=== PATIENT | female | born 1965 | race Caucasian/White ===

== ENCOUNTER 2017-05-24 07:18 | Emergency (ER) | payer BC, OTHER ==
[~2017-05-24] VITALS: Ht 182.9 cm; Wt 80.1 kg
[~2017-05-24 07:18] MED LIST: IMT100 PO; MELA1TAB5 PO
[2017-05-24 07:24] VITALS: TEMP 36.6; Ht 182.9 cm; Wt 80.1 kg
[2017-05-24] MEDS ORDERED: SODIUM CHLORIDE 0.9% 1000ML 1,000 ML IV STA ×2 (07:37→09:02)
--- NOTE | 2017-05-24 07:47 | EMERGENCY ROOM VISIT NOTE ---
History First contact with patient: 07:28 Chief Complaint: VOMITING Stated Complaint: VOMITING X 3DAYS,VARGAS,NAUSEA History of Present Illness The patient is a 51 year old female who presents to the Emergency Room via private vehicle accompanied by with complaints of "vomiting 3 days, headache, nausea". The patient states that 3 days ago she was at work, developed a headache, nausea and vomiting. She states that she typically has migraines, and uses Imitrex of which most the time experiences relief. She states that she took her first dose of Imitrex 3 days ago, and the headache seemed amplified. She states that she then took her second dose the next day and the headache began to subside. She states that unfortunately the nausea and the vomiting persisted. At this time she has been unable to tolerate any fluids or food by mouth for the past 3 days. She states she feels very weak. Additionally she notes that yesterday while laying down she saw bright flashes of light in both eyes every time she opens them. This has not dissipated. She denies any abdominal pain, or unilateral weakness. Review of Systems A complete 10-point Review of Systems was discussed with the patient, with pertinent positives and negatives listed in the History of Present Illness. All remaining Review of Systems questions can be considered negative unless otherwise specified. Past Medical/Surgical History Migraines Family History No pertinent Social History Smoking Status: Never Smoker Pt. lives and is employed locally. Current/Historical Medications Scheduled Prochlorperazine Maleate (Compazine), 1 TAB PO Q6 Scheduled PRN Sumatriptan Succinate (Imitrex), 100 MG PO UD PRN for Migraine Physical Exam Vital Signs Date Time Temp Pulse Resp B/P (MAP) Pulse Ox O2 Delivery O2 Flow Rate FiO2 05/24/17 11:54 74 20 118/74 99 05/24/17 10:55 74 20 118/83 99 Room Air 05/24/17 08:54 62 20 125/81 100 Room Air 05/24/17 08:19 78 05/24/17 07:54 97 05/24/17 07:24 36.6 81 20 121/76 97 Room Air Physical Exam VITAL SIGNS - Vital signs and nursing notes were reviewed. Stable. GENERAL - 51-year-old female appearing her stated age who is in no acute distress. Communicates well with provider and answers questions appropriately. SKIN - Without rashes. No petechial rashes. HEAD - NC/AT. Unremarkable. No loyd signs or raccoons eyes. EYES - PERRL with EOMI bilaterally. Sclera anicteric. No hyphema. EARS - No deformities of external structures noted on gross examination bilaterally. No pain elicited with palpation of the tragus bilaterally. External auditory canals without discharge or otorrhea. Tympanic membranes pearly castaneda without retraction or bulging. No fluid or purulent material visualized behind the TM. Handle of malleus, umbo, cone of light, pars tensa/ flaccid all easily visualized. No hemotympanum. NOSE - Midline and without cyanosis. No epistaxis or purulent drainage noted. Septum midline without deviation or septal hematoma noted. MOUTH/OROPHARYNX - Without perioral cyanosis. Buccal mucosa pink and moist and without leukoplakia. Tongue midline with equal elevation of palate bilaterally. No tonsillar hypertrophy, erythema, or exudates noted. Fair dentition noted. NECK - Neck with FROM. Supple to palpation. No lymphadenopathy noted. No nuchal rigidity. No evidence of meningitis. LUNGS - Chest wall symmetric without accessory muscle use, intercostals retractions, or central cyanosis. Normal vesicular breath sounds CTA B/L. No wheezes, rales, or rhonchi appreciated. CARDIAC - RRR with S1/S2. No murmur, rubs, or gallops appreciated. ABDOMEN - Abdominal contour normal without pulsations or visible masses. BS normoactive all four quadrants. No tenderness, palpable masses, hepatosplenomegaly, or ascites noted. EXTREMITIES - No clubbing or peripheral cyanosis. No pretibial edema present. She is neurovascularly intact in the extremities. +5/5 strength noted in UE/LE bilaterally. NEUROLOGIC - Cranial nerves II through XII grossly intact. Sensory intact to light touch throughout. PSYCH - A&O, and cooperates fully with examiner. Pt is very pleasant and interacts well with examiner. Medical Decision & Procedures ER Provider Diagnostic Interpretation: HEAD WITHOUT CONTRAST (CT) CT DOSE: 729.78 mGycm HISTORY: Headache, nausea, emesis x 3 days TECHNIQUE: Multiaxial CT images of the head were performed without the use of intravenous contrast. A dose lowering technique was utilized adhering to the principles of ALARA. Comparison: None. Findings: The paranasal sinuses and mastoid air cells are clear. The calvarium and skull base are intact. The ventricles and sulci are within normal limits. There is no mass, hematoma, midline shift, or acute infarct. Impression: No acute intracranial abnormality. The above report was generated using voice recognition software. It may contain grammatical, syntax or spelling errors. Electronically signed by: Lavon Gaming M.D. 05/24/2017 8:36 AM Dictated Date/Time: 05/24/2017 8:35 AM Laboratory Results 05/24/17 07:45 Red Blood Count 4.32, Mean Corpuscular Volume 93.3, Mean Corpuscular Hemoglobin 32.9, Mean Corpuscular Hemoglobin Concent 35.2, Mean Platelet Volume 9.4, Neutrophils (%) (Auto) 74.1, Lymphocytes (%) (Auto) 18.9, Monocytes (%) (Auto) 6.6, Eosinophils (%) (Auto) 0.2, Basophils (%) (Auto) 0.1, Neutrophils # (Auto) 7.63, Lymphocytes # (Auto) 1.95, Monocytes # (Auto) 0.68, Eosinophils # (Auto) 0.02, Basophils # (Auto) 0.01 05/24/17 07:45 Test 05/24/17 07:45 05/24/17 09:15 White Blood Count 10.30 K/uL (4.8-10.8) Red Blood Count 4.32 M/uL (4.2-5.4) Hemoglobin 14.2 g/dL (12.0-16.0) Hematocrit 40.3 % (37-47) Mean Corpuscular Volume 93.3 fL (80-100) Mean Corpuscular Hemoglobin 32.9 pg (25-34) Mean Corpuscular Hemoglobin Concent 35.2 g/dl (32-36) Platelet Count 365 K/uL (130-400) Mean Platelet Volume 9.4 fL (7.4-10.4) Neutrophils (%) (Auto) 74.1 % Lymphocytes (%) (Auto) 18.9 % Monocytes (%) (Auto) 6.6 % Eosinophils (%) (Auto) 0.2 % Basophils (%) (Auto) 0.1 % Neutrophils # (Auto) 7.63 K/uL (1.4-6.5) Lymphocytes # (Auto) 1.95 K/uL (1.2-3.4) Monocytes # (Auto) 0.68 K/uL (0.11-0.59) Eosinophils # (Auto) 0.02 K/uL (0-0.5) Basophils # (Auto) 0.01 K/uL (0-0.2) RDW Standard Deviation 41.6 fL (36.4-46.3) RDW Coefficient of Variation 12.2 % (11.5-14.5) Immature Granulocyte % (Auto) 0.1 % Immature Granulocyte # (Auto) 0.01 K/uL (0.00-0.02) Erythrocyte Sedimentation Rate 11 mm/hr (0-21) Prothrombin Time 10.8 SECONDS (9.0-12.0) Prothromb Time International Ratio 1.0 (0.9-1.1) Activated Partial Thromboplast Time 26.6 SECONDS (21.0-31.0) Partial Thromboplastin Ratio 1.0 Anion Gap 7.0 mmol/L (3-11) Est Creatinine Clear Calc Drug Dose 98.6 ml/min Estimated GFR () 102.9 Estimated GFR (Non- 88.8 BUN/Creatinine Ratio 17.5 (10-20) Calcium Level 9.0 mg/dl (8.5-10.1) Phosphorus Level 1.6 mg/dl (2.5-4.9) Magnesium Level 2.1 mg/dl (1.8-2.4) Total Bilirubin 0.7 mg/dl (0.2-1) Aspartate Amino Transf (AST/SGOT) 11 U/L (15-37) Alanine Aminotransferase (ALT/SGPT) 16 U/L (12-78) Alkaline Phosphatase 73 U/L (45-117) Troponin I < 0.015 ng/ml (0-0.045) C-Reactive Protein < 0.29 mg/dl (0-0.29) Total Protein 7.1 gm/dl (6.4-8.2) Albumin 3.8 gm/dl (3.4-5.0) Globulin 3.3 gm/dl (2.5-4.0) Albumin/Globulin Ratio 1.2 (0.9-2) Thyroid Stimulating Hormone (TSH) 1.520 uIu/ml (0.300-4.500) Lyme Disease IgG Antibody NEG (NEG) Lyme Disease IgM Antibody NEG (NEG) Urine Color YELLOW Urine Appearance CLEAR (CLEAR) Urine pH 8.0 (4.5-7.5) Urine Specific [place] 1.009 (1.000-1.030) Urine Protein NEG (NEG) Urine Glucose (UA) NEG (NEG) Urine Ketones 1+ (NEG) Urine Occult Blood NEG (NEG) Urine Nitrite NEG (NEG) Urine Bilirubin NEG (NEG) Urine Urobilinogen NEG (NEG) Urine Leukocyte Esterase TRACE (NEG) Urine WBC (Auto) 0 /hpf (0-5) Urine RBC (Auto) 0-4 /hpf (0-4) Urine Hyaline Casts (Auto) 0 /lpf (0-5) Urine Epithelial Cells (Auto) 10-20 /lpf (0-5) Urine Bacteria (Auto) NEG (NEG) Medications Administered Medications (Trade) Dose Ordered Sig/Fnay Route Start Time Stop Time Status Last Admin Dose Admin Sodium Chloride 1,000 ml @ 999 mls/hr Q1H1M STAT IV 05/24/17 07:37 05/24/17 08:37 DC 05/24/17 07:57 999 MLS/HR Ketorolac Tromethamine (Toradol Inj) 30 mg NOW STAT IV 05/24/17 09:01 05/24/17 09:02 DC 05/24/17 09:23 30 MG Diphenhydramine HCl (Benadryl Inj) 25 mg NOW STAT IV 05/24/17 09:01 05/24/17 09:02 DC 05/24/17 09:24 25 MG Prochlorperazine Edisylate (Compazine Inj) 10 mg NOW STAT IV 05/24/17 09:01 05/24/17 09:02 DC 05/24/17 09:26 10 MG Sodium Chloride 1,000 ml @ 200 mls/hr Q5H STAT IV 05/24/17 09:02 05/24/17 12:10 DC 05/24/17 09:33 200 MLS/HR Potassium/ Phosphorus/Sodium (Phospha 250 Neutral 155-852-130 Mg) 2 tab QID STAT PO 05/24/17 11:28 05/24/17 11:30 DC 05/24/17 11:47 2 TAB Medical Decision Patient was seen and evaluated as above. She presents to us today with headache , nausea and emesis 3 days. No evidence of meningitis on exam. Offered lumbar puncture, and specifically declined after discussing benefits versus risks. I do not believe that lumbar punctures beneficial at this time. I think she is likely experiencing exacerbation of her underlying chronic migraines, with now what appears to be persistent vomiting. IV access was initiated, and she was given 1 L fluid wide open, followed by no liter slightly slower. She was reevaluated and feeling better. She initially declined any pain medication written nausea medication, and then after discussing benefits versus risk was given Toradol, Benadryl and comes in. She was reevaluated and rated her headache a 1/10. Her phosphorus was low, therefore was given oral phosphorous and is to eat a phosphorus which diet. She is to follow-up with her family doctor for recheck of this. No evidence of kidney or liver failure. No concerning leukocytosis or anemia. She was educated upon management, and was felt stable for outpatient management. She was also personally evaluated by the attending physician. She was educated upon worrisome symptoms which to return, had questions answered prior to discharge, and was discharged home in good condition. She'll be discharged home with a prescription of Compazine. In the evaluation and treatment of this patient, the following differential diagnoses were considered: Migraine Headache, Intracranial Hemorrhage, Subdural Hematoma, Subarachnoid Hemorrhage, Cerebral Aneurysm, Temporal/Giant Cell Arteritis, Tension Headache, Meningitis, Encephalitis, or Hydrocephalus. Impression Primary Impression: Vomiting Additional Impressions: Headache low phosphorus Departure Information Dispostion Home / Self-Care Condition GOOD Prescriptions Prochlorperazine Maleate (COMPAZINE) 10 Mg Tab 1 TAB PO Q6 for 7 Days, #30 TAB 3 Refills Prov: Daniel Maldonado PA-C 05/24/17 Referrals Hernandez Louise M.D. (PCP) Patient Instructions My [facility] Additional Instructions You have been treated in the Emergency Department for a Headache. You have received pain medicine in the emergency department which impairs your ability to operate a vehicle. It is illegal for you to drive after receiving these medicines. Compazine, 10mg q 6 hours as needed for nausea/headache. For pain control, you can use the following [id number] medicines (if >12 yo): - Regular strength (325mg/tab) Tylenol (acetaminophen) 2 tabs every 4-6 hours as needed. Do not exceed 12 tablets in a 24 hour period. Avoid taking more than 3 grams (3000 mg) of Tylenol per day. This includes any other sources of acetaminophen you may take on a regular basis. - Regular strength (200 mg/tab) Advil (ibuprofen) 1-2 tabs every 4-6 hours as needed. Do not exceed a dose of 3200 mg per day. You should relax in a quiet, dark place for the rest of the day. Avoid any possible triggers including: cigarette smoke, caffeine, nicotine, chocolate, wine, beer, loud noises or music, or bright lights. You should schedule a follow-up appointment in 2-3 days with your Primary Care Provider or established Neurologist for further evaluation and treatment of your Headache. Return to the Emergency Department if your current symptoms worsen despite treatment course outlined above, or if you develop any of the following symptoms : intractable pain despite aforementioned treatment course, visual disturbances , loss of vision, unilateral weakness or facial drooping, slurring of speech, loss of coordination, or loss of consciousness. Please return with any new/concerning symptoms. Please see a phosphorus which diet and follow with the family doctor for repeat. Dairy Dairy products are the best source of phosphorus. A 1-cup serving of milk has 247 milligrams of phosphorus. Eight ounces of plain yogurt contain 385 milligrams, which is over 50 percent of the daily recommended amount. Also, a 1- ounce serving of part-skim mozzarella cheese contains 131 milligrams of phosphorus. Fish A 3-ounce cooked serving of halibut contains 242 milligrams of phosphorus. [place] has 252 milligrams per 3-ounce serving. These contain about one-third of your daily recommended amount of phosphorus per serving. Other fish such as cod , tuna, sardines and curtis are all high in phosphorus as well. Meat Beef and turkey contain the same amount of phosphorus, 173 milligrams per 3- ounce serving. Chicken has slightly less with 155 milligrams per serving. Each serving of meat has about 25 percent of the daily recommended amount of phosphorus. This source of phosphorus is more easily used in the body. Nuts and Beans Beans are the best non-animal food source of phosphorus. Lentils have 178 milligrams per ozy-gjrd-ygk serving. A 1-ounce serving of almonds has 134 milligrams, and a serving of peanuts has 107 milligrams. Phosphorus found in plant products is found in a form called phytate. Only about 50 percent of this form of phosphorus can be absorbed, since phytate competes for the same absorption site and reduces the amount absorbed. Vitamin D increases the absorption of this form of phosphorus. Because of this, animal products high in phosphorus are better sources of phosphorus than plant products. Whole Grains Two slices of whole-wheat bread contain 128 milligrams of phosphorus. One packet of plain instant oats contains 96 milligrams of phosphorus and cream of wheat contains 95 milligrams per cup. Whole-grain products that contain yeast are more bioavailable and richer in phosphorus than whole-grain products without yeast. Problem Qualifiers
[2017-05-24 07:54] VITALS: O2SAT 97
[2017-05-24 08:01] LABS: BASO % 0.1 %; BASO ABS # 0.01 K/uL (0-0.2); COMPLETE YES; EOS % 0.2 %; HEMATOCRIT 40.3 % (37-47); IG% 0.1 %; LYMPH % 18.9 %; LYMPH ABS # 1.95 K/uL (1.2-3.4); MEAN CELL VOLUME 93.3 fL (80-100); MEAN CORPUSCULAR HEMOGLOBIN 32.9 pg (25-34); MEAN CORPUSCULAR HGB CONC 35.2 g/dl (32-36); MEAN PLATELET VOLUME 9.4 fL (7.4-10.4); MONO % 6.6 %; NEUT % 74.1 %; PLATELET COUNT 365 K/uL (130-400); RED BLOOD COUNT 4.32 M/uL (4.2-5.4)
[2017-05-24 08:10] LABS: PROTHROMBIN TIME (PATIENT) 10.8 SECONDS (9.0-12.0)
[2017-05-24 08:17] LABS: BLOOD UREA NITROGEN 14 mg/dl (7-18); BUN/CREATININE RATIO 17.5 (10-20); C-REACTIVE PROTEIN < 0.29 mg/dl (0-0.29); CARBON DIOXIDE 26 mmol/L (21-32); CHLORIDE 101 mmol/L (98-107); CREATININE 0.77 mg/dl (0.60-1.20); GLUCOSE 94 mg/dl (70-99); MAGNESIUM 2.1 mg/dl (1.8-2.4); POTASSIUM 3.5 mmol/L (3.5-5.1); SODIUM 134 mmol/L (136-145)
[2017-05-24 08:26] LABS: ALB/GLOB RATIO 1.2 (0.9-2); ALKALINE PHOSPHATASE 73 U/L (45-117); ALT/SGPT 16 U/L (12-78); AST/SGOT 11 U/L (15-37); PHOSPHORUS 1.6 mg/dl (2.5-4.9)
--- NOTE | 2017-05-24 08:38 | DIAGNOSTIC IMAGING REPORT ---
HEAD WITHOUT CONTRAST (CT) CT DOSE: 729.78 mGycm HISTORY: Headache, nausea, emesis x 3 days TECHNIQUE: Multiaxial CT images of the head were performed without the use of intravenous contrast. A dose lowering technique was utilized adhering to the principles of ALARA. Comparison: None. Findings: The paranasal sinuses and mastoid air cells are clear. The calvarium and skull base are intact. The ventricles and sulci are within normal limits. There is no mass, hematoma, midline shift, or acute infarct. Impression: No acute intracranial abnormality. The above report was generated using voice recognition software. It may contain grammatical, syntax or spelling errors. Electronically signed by: Lavon Gaming M.D. 05/24/2017 8:36 AM Dictated Date/Time: 05/24/2017 8:35 AM
[2017-05-24] MEDS ORDERED: KETOROLAC TROMETHAMINE 30 MG/ML VIAL IV STA (09:01)
[2017-05-24] MEDS ORDERED: DiphenhydrAMINE HCL 50 MG/ML VIAL IV STA (09:01)
[2017-05-24] MEDS ORDERED: PROCHLORPERAZINE 5 MG/ML 2 ML VIAL IV STA (09:01)
[2017-05-24 09:04] LABS: LYME DISEASE AB IGG NEG (NEG); LYME DISEASE AB IGM NEG (NEG)
[2017-05-24 09:28] LABS: URINE APPEARANCE CLEAR (CLEAR); URINE BILIRUBIN NEG (NEG); URINE COLOR YELLOW; URINE NITRITE NEG (NEG); URINE SPECIFIC GRAVITY 1.009 (1.000-1.030); UROBILINOGEN NEG (NEG); ZZUR CULT IF INDIC CLEAN CATCH NO
[2017-05-24 09:32] LABS: MANUAL MICROSCOPIC REQUIRED? NO; REVIEW REQ? NO
[2017-05-24] MEDS ORDERED: POT PHOSPHATE MONOBASIC W/ SOD TAB PO STA (11:28)
[2017-05-24] MEDS ORDERED: PROC1TAB5 PO (11:32)
[2017-05-24 11:54] VITALS: BP 118/74; PULSE 74; O2SAT 99
== END 2017-05-24 11:54 | disposition home or self-care (01) ==
LOC: C.EDB 07:19
DX: R11.10 Vomiting, unspecified (principal); R51 Headache; E83.39 Other disorders of phosphorus metabolism

== ENCOUNTER → 2017-07-31 | Outpatient (CLI) | payer BC ==
[~2017-07-31] MED LIST changes: -MELA1TAB5 PO; +PROC1TAB5 PO
--- NOTE | 2017-08-01 13:44 | MAMMOGRAPHY REPORT ---
BILATERAL DIGITAL SCREENING MAMMOGRAM TOMOSYNTHESIS WITH CAD: 07/31/2017 CLINICAL HISTORY: Routine screening. Patient has no complaints. TECHNIQUE: Breast tomosynthesis in addition to standard 2D mammography was performed. Current study was also evaluated with a Computer Aided Detection (CAD) system. COMPARISON: Comparison is made to exams dated: 08/12/2015 mammogram, 07/28/2013 mammogram, 04/11/2012 mammogram, 05/17/2011 mammogram, 05/09/2011 mammogram, and 08/24/2009 mammogram - [facility]. BREAST COMPOSITION: The tissue of both breasts is heterogeneously dense, which may obscure small mas ses. FINDINGS: There is a possible area of architectural distortion in the medial, middle one third of th e left breast, only seen on the CC view, for which additional spot compression tomosynthesis views an d possible ultrasound are recommended. There are multiple bilateral circumscribed masses scattered in both breasts, most likely representing cysts/fibrocystic change. There is stable asymmetry in the far superior posterior left breast on th e MLO view. A few benign rim calcifications. No other suspicious mass, architectural distortion or cluster of microcalcifications is seen. IMPRESSION: ACR BI-RADS CATEGORY 0: INCOMPLETE EVALUATION: NEED ADDITIONAL IMAGING EVALUATION The possible area of architectural distortion in the medial left breast needs additional evaluation. The patient will be called to schedule an appointment. Approximately 10% of breast cancers are not detected with mammography. A negative mammographic report should not delay biopsy if a clinically suggestive mass is present. Roxanna Tran M.D. ay/:07/31/2017 16:08:42 Water Plant Pump Operator Supervisor: Viri JOHNSON(Luke)(Lane)(SHAKILA), [facility] letter sent: Addl Imaging 0 BI-RADS Code: ACR BI-RADS Category 0: Incomplete Evaluation: Need Additional Imaging Evaluation
== END | disposition home or self-care (01) ==
LOC: C.MAMM 13:20
PROVIDERS: ATTEND Internal Medicine
DX: Z12.31 Encounter for screening mammogram for malignant neoplasm of breast (principal); R92.8 Other abnormal and inconclusive findings on diagnostic imaging of breast

== ENCOUNTER → 2017-08-08 | Outpatient (CLI) | payer BC ==
--- NOTE | 2017-08-08 15:18 | MAMMOGRAPHY REPORT ---
UNILATERAL LEFT DIGITAL DIAGNOSTIC MAMMOGRAM TOMOSYNTHESIS AND TARGETED LEFT ULTRASOUND: 08/08/2017 CLINICAL HISTORY: Callback from screening mammogram for possible left breast distortion. TECHNIQUE: Breast tomosynthesis in addition to standard 2D mammography was performed. Spot compress ion left CC and MLO 2-D and tomosynthesis images were obtained. COMPARISON: Comparison is made to exams dated: 07/31/2017 mammogram, 08/12/2015 mammogram, 3 mammogram, 04/11/2012 mammogram, 05/17/2011 mammogram, and 05/09/2011 mammogram - [facility]. BREAST COMPOSITION: The tissue of the left breast is heterogeneously dense, which may obscure small masses. FINDINGS: The previously described questionable architectural distortion in the left medial breast on the cc view does not persist on the additional spot compression tomosynthesis views. Normal fibrogl andular tissue is seen in this region on the additional views which appears stable on 2-D images comp ared to multiple prior exams including the 2011 exam, without evidence of a suspicious mass or other suspicious abnormality. Circumscribed left breast masses are again seen, which likely represent cys ts. Targeted ultrasound was performed of the left medial breast in the region of the questionable archite ctural distortion. One of the images labeled "left breast lateral "is mislabeled and was actually pe rformed of the left medial breast. No suspicious masses or other suspicious mammographic abnormaliti es are evident. Multiple small scattered round/oval circumscribed anechoic masses are seen in the le ft medial breast, consistent with benign cysts. IMPRESSION: ACR BI-RADS CATEGORY 2: BENIGN, TARGETED ULTRASOUND ACR BI-RADS CATEGORY 2: BENIGN The questionable left breast architectural distortion does not persist on the additional views, witho ut corresponding suspicious sonographic abnormality evident. Findings are benign and compatible with normal fibroglandular tissue. There is no mammographic or targeted sonographic evidence of malignan cy. A 1 year screening mammogram is recommended. The patient has been verbally notified of the resul ts. Approximately 10% of breast cancers are not detected with mammography. A negative mammographic report should not delay biopsy if a clinically suggestive mass is present. Jerilyn Monteiro M.D. ah/:08/08/2017 14:47:52 Contract Forester: Julio C JOHNSON(Luke)(M), [facility] letter sent: Normal 09/04 BI-RADS Code: ACR BI-RADS Category 2: Benign Ultrasound BI-RADS: ACR BI-RADS Category 2: Benign
== END | disposition home or self-care (01) ==
LOC: C.MAMM 14:16
PROVIDERS: ATTEND Internal Medicine
DX: R92.8 Other abnormal and inconclusive findings on diagnostic imaging of breast (principal)

== ENCOUNTER → 2018-04-24 | Outpatient (CLI) | payer OTHER ==
[~2018-04-24] MED LIST changes: +PROC10TA PO; -PROC1TAB5 PO
== END | disposition home or self-care (01) ==
LOC: C.LABSPEC 13:03
PROVIDERS: ATTEND Physician Assistant Medical
DX: R30.0 Dysuria (principal)